=== PATIENT | male | born 1950 | race Caucasian/White ===

== ENCOUNTER → 2016-10-28 | Outpatient (CLI) | payer MEDICARE ==
[~2016-10-28] VITALS: Ht 179.1 cm; Wt 85.0 kg
[~2016-10-28] MED LIST: AMLO-511 PO; ASPI-1061 PO; BISO5TAB26 PO; FLUO-191 PO; HEPARIN SODIUM,PORCINE 1,000 UNITS/ML 10 ML VIAL ONE; NITROGLYCERIN 50 MG/D5% WATER 0 ML ONE; OLAN5TAB2 PO; OXCA300T PO; ROSU10 PO; VERAPAMIL HCL 2.5 MG/ML 2 ML VIAL ONE; [UNRECOGNIZED DRUG - OTHER] PO
[2016-10-28 13:56] VITALS: BP 105/65
== END | disposition home or self-care (01) ==
LOC: SRCNTR 13:28
PROVIDERS: ATTEND Internal Medicine Cardiovascular Disease
DX: I10 Essential (primary) hypertension (principal); I25.10 Atherosclerotic heart disease of native coronary artery without angina pectoris; E78.5 Hyperlipidemia, unspecified; F41.9 Anxiety disorder, unspecified; F32.9 Major depressive disorder, single episode, unspecified; R94.39 Abnormal result of other cardiovascular function study
CPT/HCPCS: G0463; J1644; J3490

== ENCOUNTER 2016-10-29 09:55 | Day surgery (SDC) | payer MEDICARE ==
[~2016-10-29] VITALS: Ht 180.3 cm; Wt 85.5 kg
[~2016-10-29 09:55] MED LIST changes: -HEPARIN SODIUM,PORCINE 1,000 UNITS/ML 10 ML VIAL ONE; -NITROGLYCERIN 50 MG/D5% WATER 0 ML ONE; -VERAPAMIL HCL 2.5 MG/ML 2 ML VIAL ONE; -[UNRECOGNIZED DRUG - OTHER] PO
[2016-10-29] MEDS ORDERED: SODIUM CHLORIDE 0.9% 1,000 ML IV ONE ×2 (11:00→11:48)
[2016-10-29 11:16] LABS: BASOPHILS # (AUTO) 0.02 K/uL (0.00-0.20); BASOPHILS % (AUTO) 0.3 % (0.0-2.0); EOSINOPHILS % (AUTO) 1.37 % (1.0-6.0); HEMATOCRIT 47.3 % (41-53); HEMOGLOBIN 15.6 g/dL (13.5-17.5); LYMPHOCYTES # (AUTO) 1.3 K/uL (1.0-4.8); LYMPHOCYTES % (AUTO) 17.2 % (22.0-44.0); MEAN CORPUSCULAR HEMOGLOBIN 30.9 pg (26.0-34.0); MEAN CORPUSCULAR HGB CONC 32.9 G/dL (31.0-37.0); MEAN CORPUSCULAR VOLUME 94 fL (80-100); MONOCYTES # (AUTO) 0.3 K/uL (0.1-1.0); NEUTROPHILS # (AUTO) 5.7 K/uL (1.8-7.7); NEUTROPHILS % (AUTO) 77.2 % (40.0-70.0); PLATELET COUNT (AUTO) 171 K/uL (150-450); RED BLOOD CELL COUNT(AUTO) 5.04 MIL/uL (4.50-5.90); WHITE BLOOD COUNT (AUTO) 7.4 K/uL (4.5-11.0)
[2016-10-29 11:33] LABS: ANION GAP 7 mmol/L (8-16); CARBON DIOXIDE 27 mmol/L (22-29); CHLORIDE 106 mmol/L (98-107); CREATININE 0.94 mg/dL (0.60-1.30); GLOMERULAR FILTR. RATE CALC > 60 mL/min (>60); POTASSIUM 4.3 mmol/L (3.5-5.1); SODIUM SERUM 140 mmol/L (136-145); UREA NITROGEN, BLOOD 15 mg/dL (7-18)
[2016-10-29] MEDS ORDERED: [UNRECOGNIZED DRUG - OTHER] PO (11:40)
[2016-10-29 11:50] LABS: PROTHROMBIN TIME 10.3 SEC (9.4-11.6)
[2016-10-29] MEDS ORDERED: LIDOCAINE HCL/PF 1% 30 ML VIAL ONE (12:10)
[2016-10-29] MEDS ORDERED: IOHEXOL 300 MG/ML 150 ML VIAL ONE (12:10)
[2016-10-29] MEDS ORDERED: IOHEXOL 300 MG/ML 50 ML VIAL ONE (12:10)
[2016-10-29] MEDS ORDERED: HEPARIN SODIUM 1000 UNITS/NS 1,000 ML ONE (12:10)
[2016-10-29] MEDS ORDERED: 0.9% SODIUM CHLORIDE 10 ML SYRINGE IVP ONE (12:11)
[2016-10-29 12:20] VITALS: BP 121/76
[2016-10-29] MEDS ORDERED: LIDOCAINE HCL/PF 1% 30 ML VIAL INJ ONE (12:43)
[2016-10-29] MEDS ORDERED: HEPARIN SODIUM 2,000 UNITS in HEPARIN SODIUM 1000 UNITS/NS 1,000 ML IARTER ONE (12:44)
[2016-10-29] MEDS ORDERED: IOHEXOL 300 MG/ML 150 ML VIAL IARTER ONE (12:46)
[2016-10-29 13:07] VITALS: BP 121/62
== END 2016-10-29 17:10 | disposition home or self-care (01) ==
LOC: CATHLAB 09:55
PROVIDERS: ATTEND Internal Medicine Cardiovascular Disease
DX: I25.10 Atherosclerotic heart disease of native coronary artery without angina pectoris (principal); I10 Essential (primary) hypertension; E78.00 Pure hypercholesterolemia, unspecified; F41.9 Anxiety disorder, unspecified; F32.9 Major depressive disorder, single episode, unspecified; M54.9 Dorsalgia, unspecified; G47.00 Insomnia, unspecified; Z79.01 Long term (current) use of anticoagulants; Z98.890 Other specified postprocedural states; Z87.891 Personal history of nicotine dependence
CPT/HCPCS: 36415; 80048; 85025; 85610; 85730; 93005; 93458; J1644; J3490; J7030; Q9967 ×2

== ENCOUNTER → 2016-11-04 | Outpatient (CLI) | payer MEDICARE ==
[~2016-11-04] VITALS: Ht 179.1 cm; Wt 84.0 kg
[~2016-11-04] MED LIST changes: +[UNRECOGNIZED DRUG - OTHER] PO
[2016-11-04 15:30] VITALS: BP 97/57
== END | disposition home or self-care (01) ==
LOC: SRCNTR 15:02
PROVIDERS: ATTEND Internal Medicine Cardiovascular Disease
DX: I10 Essential (primary) hypertension (principal); I25.10 Atherosclerotic heart disease of native coronary artery without angina pectoris; E78.5 Hyperlipidemia, unspecified; F41.9 Anxiety disorder, unspecified
CPT/HCPCS: G0463

== ENCOUNTER → 2017-03-24 | Outpatient (CLI) | payer MEDICARE ==
[~2017-03-24] VITALS: Ht 177.8 cm; Wt 86.0 kg
[~2017-03-24] MED LIST changes: -ASPI-1061 PO; +ASPI81TA33 PO
[2017-03-24 14:47] VITALS: BP 119/72
== END | disposition home or self-care (01) ==
LOC: SRCNTR 14:38
PROVIDERS: ATTEND Internal Medicine Cardiovascular Disease
DX: I10 Essential (primary) hypertension (principal); E78.5 Hyperlipidemia, unspecified; F41.9 Anxiety disorder, unspecified; I25.10 Atherosclerotic heart disease of native coronary artery without angina pectoris; Z79.899 Other long term (current) drug therapy
CPT/HCPCS: G0463

== ENCOUNTER → 2018-03-31 | Outpatient (CLI) | payer MEDICARE ==
[~2018-03-31] VITALS: Ht 177.8 cm; Wt 88.0 kg
[~2018-03-31] MED LIST changes: -ASPI81TA33 PO; +ASPI81TA87 PO; -OXCA300T PO; +OXCA300T29 PO
[2018-03-31 11:09] VITALS: BP 111/67
== END | disposition home or self-care (01) ==
LOC: SRCNTR 10:38
PROVIDERS: ATTEND Internal Medicine Cardiovascular Disease
DX: I25.10 Atherosclerotic heart disease of native coronary artery without angina pectoris (principal); I10 Essential (primary) hypertension; E78.5 Hyperlipidemia, unspecified
CPT/HCPCS: G0463

== ENCOUNTER → 2018-08-20 | Outpatient (CLI) | payer MEDICARE ==
[~2018-08-20] VITALS: Ht 180.3 cm; Wt 89.0 kg
[~2018-08-20] MED LIST changes: -ROSU10 PO; +ROSU10TA22 PO
[2018-08-20 11:26] VITALS: BP 128/83
== END | disposition home or self-care (01) ==
LOC: SRCNTR 10:51
PROVIDERS: ATTEND Internal Medicine Cardiovascular Disease
DX: E78.5 Hyperlipidemia, unspecified (principal); I10 Essential (primary) hypertension; I25.10 Atherosclerotic heart disease of native coronary artery without angina pectoris
CPT/HCPCS: G0463